=== PATIENT | female | born 1970 | race Two or more races ===

== ENCOUNTER 2019-02-20 23:02 | Emergency (ER) | payer OTHER ==
[~2019-02-20] VITALS: Ht 165.1 cm; Wt 56.7 kg
[2019-02-20] MEDS ORDERED: WELLBUTRIN SR100 MG (23:08)
[2019-02-20] MEDS ORDERED: XANAX0.25 MG (23:08)
[2019-02-20] MEDS ORDERED: AMBIEN5 MG (23:09)
[2019-02-21] MEDS ORDERED: KETO10TA2 PO (07:47)
== END 2019-02-21 07:53 | disposition home or self-care (01) ==
LOC: ER 23:02
DX: R55 Syncope and collapse (principal)